=== PATIENT | female | born 1995 | race Caucasian/White ===

== ENCOUNTER → 2024-07-25 08:52 | Outpatient (CLI) | payer BC, SELFPAY ==
--- NOTE | 2024-07-25 09:14 | DI.RAD.S_ITS ---
PROCEDURE: XR CHEST 2V INDICATIONS: Cough TECHNIQUE: 2 views of the chest were acquired. COMPARISON: None. FINDINGS: Surgical changes and devices: None. Lungs and pleura: Lungs are clear. No pleural effusions or pneumothorax. Mediastinum: Mediastinal contours are normal. Heart size is normal. Bones and chest wall: No suspicious bony abnormalities. Soft tissues appear unremarkable. IMPRESSION: No acute cardiopulmonary abnormality is seen. Dictated by: Arthur Garza M.D. on 07/25/2024 at 13:05 Approved by: Arthur Garza M.D. on 07/25/2024 at 13:08
[2024-07-25 10:16] LABS: COVID-19 CEPHEID 4-PLEX PCR Negative (Negative); Influenza A - CEPHEID Flu A NEGATIVE (NEGATIVE); Influenza B - CEPHEID Flu B NEGATIVE (NEGATIVE); Respiratory Syncytial Virus POSITIVE (Negative)
== END ==
PROVIDERS: Referring Provider Nurse Practitioner Family; Visit Provider Nurse Practitioner Family
DX: R05.1 Acute cough (principal); R05.9 Cough, unspecified
CPT/HCPCS: 0241U; 71046; 87070